=== PATIENT | female | born 1970 | race Caucasian/White ===

== ENCOUNTER → 2016-12-29 | Outpatient (CLI) | payer MEDICAID | LOC: CIMAGING 18:16 | PROVIDERS: ATTEND Family Medicine | DX: M41.86 Other forms of scoliosis, lumbar region (principal); M47.896 Other spondylosis, lumbar region; M25.78 Osteophyte, vertebrae | CPT/HCPCS: 72100-PO ==

== ENCOUNTER → 2017-01-23 | Outpatient (CLI) | payer MEDICAID | LOC: FIMAGING 13:11 | DX: M50.20 Other cervical disc displacement, unspecified cervical region (principal); M79.605 Pain in left leg ==